=== PATIENT | female | born 1990 | race Caucasian/White ===

== ENCOUNTER 2018-11-01 13:35 | Emergency (ER) | payer OTHER ==
[2018-11-01 13:52] VITALS: BP 117/66
--- NOTE | 2018-11-01 14:46 | ED ---
Skin Complaint - HPI Summary HPI Summary: 28-year-old female presents with rash today. States that 3 days ago she had burning type pain over the left side of her forehead that has persisted. She states the rash has a burning type pain. Rash does not extend over entire face. she denies any visual changes or blurry vision. Does not wear glasses or contacts. She admits to headache only over the rashes. She denies any fevers. no new products or soaps. - History of Current Complaint Chief Complaint: UCSkin Time Seen by Provider: 11/01/18 14:37 Stated Complaint: SKIN ISSUSE Hx Last Menstrual Period: 10/14/18 Pain Intensity: 4 - Allergy/Home Medications Allergies/Adverse Reactions: Allergies Allergy/AdvReac Type Severity Reaction Status Date / Time meloxicam [From Mobic] Allergy Abdominal Verified 11/01/18 13:53 Pain metronidazole [From Flagyl] Allergy Abdominal Verified 11/01/18 13:54 Pain Home Medications: Home Medications Adderall 5 mg Tablet 5 mg PO DAILY 11/01/18 [History Confirmed 11/01/18] Magnesium Oxide [Magnesium] 1 tab PO BID 11/01/18 [History Confirmed 11/01/18] PMH/Surg Hx/FS Hx/Imm Hx Endocrine/Hematology History: Denies: Hx Anticoagulant Therapy Respiratory History: Denies: Hx Asthma - Cancer History Cancer Type, Location and Year: spinal fusion - Surgical History Surgery Procedure, Year, and Place: adhd Infectious Disease History: No Infectious Disease History: Denies: Traveled Outside the [place] in Last 30 Days - Family History Known Family History: Positive: Non-Contributory - Social History Alcohol Use: Rare Substance Use Type: Reports: None Smoking Status (MU): Never Smoked Tobacco Review of Systems Negative: Fever Negative: Chest Pain Negative: Shortness Of Breath Positive: Rash All Other Systems Reviewed And Are Negative: Yes Physical Exam Triage Information Reviewed: Yes Vital Signs On Initial Exam: Initial Vitals Temp Pulse Resp BP Pulse Ox 97.7 F 94 16 117/66 100 11/01/18 13:49 11/01/18 13:49 11/01/18 13:49 11/01/18 13:49 11/01/18 13:49 Vital Signs Reviewed: Yes Appearance: Positive: Well-Appearing Skin: Positive: Warm, Dry, Other - papules on left side of face, none near eyelid or eye, do not cross over mildine Head/Face: Positive: Normal Head/Face Inspection Eyes: Positive: Normal, Conjunctiva Clear ENT: Positive: Pharynx normal Respiratory/Lung Sounds: Positive: Clear to Auscultation, Breath Sounds Present Cardiovascular: Positive: Normal, RRR Musculoskeletal: Positive: Normal Neurological: Positive: Normal Psychiatric: Positive: Normal Diagnostics - Vital Signs Vital Signs Temp Pulse Resp BP Pulse Ox 11/01/18 13:49 97.7 F 94 16 117/66 100 - Laboratory Lab Statement: Any lab studies that have been ordered have been reviewed, and results considered in the medical decision making process. Course/Dx - Course Course Of Treatment: 28-year-old female presents with rash today. States that 3 days ago she had burning type pain over the left side of her forehead that has persisted. She states the rash has a burning type pain. Rash does not extend over entire face. she denies any visual changes or blurry vision. Does not wear glasses or contacts. She admits to headache only over the rashes. She denies any fevers. On exam has papular rash only on the left side face. Doesn't cross mildine. Rash appears most consistent with shingles. We'll prescribe Valtrex. Warned develops any eye symptoms go immediately to the ER. Patient understands agrees with plan. - Differential Diagnoses - Skin Complaint Differential Diagnoses: Cellulitis, Contact Dermatitis, Varicella Zoster - Diagnoses Provider Diagnoses: Shingles Discharge - Sign-Out/Discharge Documenting (check all that apply): Patient Departure All imaging exams completed and their final reports reviewed: No Studies - Discharge Plan Condition: Good Disposition: HOME Prescriptions: ValACYclovir (*) [Valtrex 1 GM(*)] 1 gm PO TID #21 tab Patient Education Materials: Shingles (ED) Forms: *Work Release Referrals: No Primary Care Phys,NOPCP [Primary Care Provider] - Additional Instructions: take valtrex three times a day Take tyenlol or ibuprofen as needed for pain every 6 hours Return to ER if develop any visual changes or any new or worsening symptoms - Billing Disposition and Condition Condition: GOOD Disposition: Home - Attestation Statements Provider Attestation: I did not see or disposition this patient. I was available for consult.
== END 2018-11-01 15:03 | disposition home or self-care (01) ==
LOC: UCEAST 13:35
DX: B02.9 Zoster without complications (principal); Z88.6 Allergy status to analgesic agent; Z88.1 Allergy status to other antibiotic agents
CPT/HCPCS: 99202; G0463

== ENCOUNTER 2018-11-05 13:05 | Emergency (ER) | payer OTHER ==
[2018-11-05 13:35] VITALS: BP 119/88
--- NOTE | 2018-11-05 13:49 | UC ---
Skin Complaint HPI - HPI Summary HPI Summary: 28 y/o female presents to the urgent care c/o herpes Zoster in the left side of her forehead, now spreading on the left upper eyelid since yesterday. Pt was seen here at the clinic on 11/01/2018 and Rx Valtrex TID x 7 days. Pain is the forehead is 5/10. She has been taking Ibuprofen for pain, but pain is not improving. However she has Hx of occipital neuralgia and it was probably triggered by the rash. She is concerned that rash will spread into her eye. However she denies eye redness, eye pain, fever, visual disturbances, TRAYLOR, dizziness, SOB, chest pain, abdominal pain, N/V/d. 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 She request a note for school since she is seen some clients this week. - History of Current Complaint Chief Complaint: UCRas Time Seen by Provider: 11/05/18 13:46 Stated Complaint: SKIN COMPLAINT Hx Obtained From: Patient Hx Last Menstrual Period: 10/16/18 ?: No Onset/Duration: Gradual Onset, Lasting Weeks, Still Present, Worse Since - yesterday involving the upper eyelid Skin Exposure Onset/Duration: Weeks Ago - 1 week Timing: Constant Onset Severity: Mild Current Severity: Moderate Pain Intensity: 5 Pain Scale Used: 0-10 Numeric Location: Discrete - left side of forehead, now spreading on the left upper eyelid Character: Pain, Redness, Raised Aggravating Factor(s): Touch Alleviating Factor(s): Other - Valtrex Rx on 11/01/2018 Associated Signs & Symptoms: Positive: Rash - left side of forehead and left upper eyelid, Tenderness Related History: Other: - chicken pox as a child and Hx of herpes Zoster Similar Episode/Dx as: herpes zoster - Allergy/Home Medications Allergies/Adverse Reactions: Allergies Allergy/AdvReac Type Severity Reaction Status Date / Time meloxicam [From Mobic] Allergy Abdominal Verified 11/05/18 13:35 Pain metronidazole [From Flagyl] Allergy Abdominal Verified 11/05/18 13:35 Pain Home Medications: Home Medications Cyclobenzaprine HCl 5 mg PO DAILY WITH MEAL 11/05/18 [History Confirmed 11/05/18 ] PMH/Surg Hx/FS Hx/Imm Hx Previously Healthy: Yes Other Endocrine History: herpes Zoster Other Neurological History: occipital neulargia, Other History Of: Negative For: Anticoagulant Therapy - Surgical History Surgical History: Yes Surgery Procedure, Year, and Place: c6, c7 fusion - Family History Known Family History: Positive: Non-Contributory - Social History Alcohol Use: Rare Substance Use Type: None Smoking Status (MU): Never Smoked Tobacco Review of Systems All Other Systems Reviewed And Are Negative: Yes Constitutional: Positive: Negative Skin: Positive: Rash - left side of forehead painful rash spreading on the left upper eyelid Eyes: Positive: Negative. Negative: Drainage, Eye Redness, Photophobia ENT: Positive: Negative Respiratory: Positive: Negative Cardiovascular: Positive: Negative Gastrointestinal: Positive: Negative Genitourinary: Positive: Negative Motor: Positive: Negative Neurovascular: Positive: Negative Musculoskeletal: Positive: Negative Neurological: Positive: Headache Psychological: Positive: Negative Is Patient Immunocompromised?: No Physical Exam - Summary Physical Exam Summary: Vital Signs Reviewed: Yes General: well appearing, well nourished female in no acute apparent pain distress, sitting comfortably on examining table Eye Exam: Normal Eyes: Positive: B/L Conjunctiva clear- Visual acuity: WNL,Visual owens: full to confrontation. LF upper eyelid with mild maculopapular eruption , no vesicles observed, non tender to palpation. PERRLA, EOMI intact w/out limitation or complaint of pain. eyelashes clear. No ciliary flush. No chemosis , No photophobia. Normal fundoscopic exam; no proptosis, exophthalmos, nystagmus. ENT: Positive: Normal ENT inspection, Hearing grossly normal, Pharynx normal, TMs normal Neck: Positive: Supple, Nontender, No Lymphadenopathy Respiratory: Positive: Chest non-tender, Lungs clear, Normal breath sounds, No respiratory distress Cardiovascular: Positive: RRR, No Murmur, Pulses Normal, Brisk Capillary Refill Abdomen Description: Positive: Nontender, No Organomegaly, Soft. Negative: CVA Tenderness (R), CVA Tenderness (L) Bowel Sounds: Positive: Present Musculoskeletal: Positive: Strength Intact, ROM Intact, No Edema Neurological: Positive: Alert, Muscle Tone Normal Psychological Exam: Normal Skin: Positive: :Positive mild erythematous maculopapular eruption, some papule with clear vesicles. located in the left side of the forehead and mildly spreading to the left upper eyelid in a dermatomal distribution and other papules on the left side of the scalp w/ mild tenderness to palpation, no swelling observed. Triage Information Reviewed: Yes Vital Signs: Initial Vital Signs Temp 98.5 F 11/05/18 13:30 Pulse 105 11/05/18 13:30 Resp 18 11/05/18 13:30 BP 119/88 11/05/18 13:30 Pulse Ox 100 11/05/18 13:30 Course/Dx - Course Course Of Treatment: 28 y/o female presents to the urgent care c/o herpes Zoster in the left side of her forehead, now spreading on the left upper eyelid since yesterday. Pt was seen here at the clinic on 11/01/2018 and Rx Valtrex TID x 7 days. Pain is the forehead is 5/10. She has been taking Ibuprofen for pain, but pain is not improving. However she has Hx of occipital neuralgia and it was probably triggered by the rash. She is concerned that rash will spread into her eye. However she denies eye redness, eye pain, fever, visual disturbances, TRAYLOR, dizziness, SOB, chest pain, abdominal pain, N/V/d. 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 She request a note for school since she is seen some clients this week. Hx obtained. Pt w/ Positive mild erythematous maculopapular eruption, some papule with clear vesicles. located in the left side of the forehead and mildly spreading to the left upper eyelid in a dermatomal distribution and other papules on the left side of the scalp w/ mild tenderness to palpation, no swelling observed on examination. Pt with Herpes Zoster on the left side of forehead on the Facial nerve V1 distribution, now spreading to the left upper eyelid. Pt already taking valtrex and Ibuprofen PO to alleviate symptoms. Left eye is not injected or painful w/o any visual disturbances. I called DR Paz's office to get a soon appt for and consult evaluation to r/o herpes ophthalmicus. However, Pt can only bee sen on Monday11/07/2017 at 3:15Pm. Pt's symptoms discussed w/ DR Napier in regards if Pt can wait to see environmental aide in 2 days. He agreed since Herpes Zoster is in the Facial nerve Vi distribution and not affecting the eye. However recommended to advised the patient if eye redness or pain develops to go immediately to the ER. Pt Rx gabapentin PO as directed below to alleviate pain. Pt advised if worsening of symptoms and eye involvement occurs like redness, visual disturbances, or eye pain to go immediately to the ER or try to get a sooner appt w/ another Stationary Equipment Mechanic Dr Murphy, referral given too. D/C instructions explained, School excused given.PT understood and agreed with D/C instructions. Pt left clinic ambulating , hemodynamically stable , A&OX3te - Differential Diagnoses - Skin Complaint Differential Diagnoses: Abscess, Cellulitis, Contact Dermatitis, Impetigo, Local Allergic Reaction, MRSA, Poison Carol, Poison Cabins, Urticaria, Varicella Zoster, Other - herpes ophthalmicus - Diagnoses Provider Diagnosis: Facial herpetic lesions Discharge - Sign-Out/Discharge Documenting (check all that apply): Patient Departure - D/C home All imaging exams completed and their final reports reviewed: No Studies - Discharge Plan Condition: Stable Disposition: HOME Prescriptions: Gabapentin CAP(*) [Neurontin 300 CAP(*)] 300 mg PO TID #30 cap Patient Education Materials: Shingles (ED) Forms: *School Release Referrals: [facility] [place] [facility] [Outside] Kd Paz MD [Medical Doctor] - 11/07/18 3:00 am Josie Murphy MD [Medical Doctor] - As Soon As Possible Additional Instructions: 1-Please continue taking Valtrex as directed to alleviate Herpes Zoster 2- Please continue taking Ibuprofen PO or Gabapentin PO as directed to alleviate pain. 3- Please f/u w/ Stationary Equipment Mechanic Dr Paz on Mon11/07/2018 at 3:15pm appt I made. However if your can make a sooner appt w/ Stationary Equipment Mechanic Dr Murphy in [place] or another environmental aide to r/o herpes ophtlamicus and further management 3- If you develop eye pain, visual changes, and your eye becomes red please go immediately to the ER or f/u w/ environmental aide as soon as possible. - Billing Disposition and Condition Condition: STABLE Disposition: Home
== END 2018-11-05 14:50 | disposition home or self-care (01) ==
LOC: UCEAST 13:05
DX: B02.9 Zoster without complications (principal); R51 Headache; M54.81 Occipital neuralgia; Z88.6 Allergy status to analgesic agent; Z88.1 Allergy status to other antibiotic agents
CPT/HCPCS: 99212; G0463